=== PATIENT | female | born 1935 | race Caucasian/White ===

== ENCOUNTER → 2017-01-31 | Outpatient (CLI) | payer MEDICARE ==
[~2017-01-31] MED LIST: ASPIRIN81 M1 PO; ATOXIMETIN-B1 CAP PO; CARDIZEM CD180 MG PO; CARDIZEM CD240 MG PO; CIPRO250 MG PO; COLACE100 MG PO; COUMADIN10 M1; COUMADIN5 M2 PO; COUMADIN7.5 M1; DYAZIDE 25 MG-31 CAP PO; FERROUS SULFATE1 GRA; KLOR-CON20 MEQ PO; LANOXIN0.125 MG PO; LASIX40 MG PO; LIPITOR20 MG PO; LOMOTIL 0.025 M1 TA1 PO; Lopressor25 MG; MACROBID100 M1 PO; MASON NATURAL1000 M1 PO; NITROSTAT0.4 MG SL; PYRIDIUM200 MG PO; RYTHMOL SR325 MG PO; TOPROL XL100 MG PO; XANAX0.25 MG PO; ZOFRAN ODT4 MG SL; ZOLOFT100 MG PO
[2017-01-31 15:52] LABS: BASO % 0.5 % (0.0-1.0); EOS # 0.2 10*3/uL (0.0-0.4); EOS % 2.9 % (1.0-4.0); HEMOGLOBIN 12.6 g/dl (12.0-16.0); LYMPH # 1.6 10*3/uL (1.3-4.4); LYMPH % 19.8 % (27.0-41.0); MEAN CELL VOLUME 90.3 fl (81.0-99.0); MEAN CORPUSCULAR HGB 29.9 pg (27.0-31.0); MEAN CORPUSCULAR HGB CONC 33.2 g/dl (33.0-37.0); MEAN PLATELET VOLUME 9.7 fl (9.6-12.3); MONO # 0.7 10*3/uL (0.1-1.0); MONO % 9.5 % (3.0-9.0); NEUT # 5.2 10*3/uL (2.3-7.9); NEUT % 66.9 % (47.0-73.0); PLATELET COUNT AUTOMATED 245 10*3/uL (130-400); RED BLOOD COUNT 4.21 10*6/uL (4.10-5.10); RED CELL DISTRI WIDTH 13.7 % (0-14.5); WHITE BLOOD COUNT 7.8 10*3/uL (4.8-10.8)
[2017-01-31 16:19] LABS: ALBUMIN 3.8 gm/dl (3.1-4.5); BUN 17 mg/dl (7-24); CHLORIDE 105 mmol/L (98-107); CHOLESTEROL 123 mg/dL (<200); CREATININE 0.81 mg/dL (0.55-1.02); POTASSIUM 3.6 mmol/L (3.5-5.1); SGOT/AST 26 IU/L (3-35); SGPT/ALT 33 U/L (12-78); SODIUM 139 mmol/L (136-145); TOTAL PROTEIN 8.4 gm/dL (6.4-8.2); TRIGLYCERIDES 114 mg/dl (<150); VLDL CHOLESTEROL 23 mg/dL (6-40)
[2017-01-31 16:28] LABS: ALKALINE PHOSPHATASE 107 U/L (45-117); HDL CHOLESTEROL 49 mg/dl (40-60); LDL CHOLESTEROL 51 mg/dL (9-159)
== END | disposition home or self-care (01) ==
LOC: LAB 15:28
PROVIDERS: Internal Medicine
DX: I25.810 Atherosclerosis of coronary artery bypass graft(s) without angina pectoris (principal); E78.00 Pure hypercholesterolemia, unspecified; I10 Essential (primary) hypertension; G25.2 Other specified forms of tremor

== ENCOUNTER → 2017-09-15 | Outpatient (CLI) | payer MEDICARE ==
[2017-09-15 16:05] LABS: ALBUMIN 3.8 gm/dl (3.1-4.5); ALKALINE PHOSPHATASE 98 U/L (45-117); BUN 27 mg/dl (7-24); CHLORIDE 108 mmol/L (98-107); CHOLESTEROL 102 mg/dL (<200); HDL CHOLESTEROL 45 mg/dl (40-60); LDL CHOLESTEROL 42 mg/dL (9-159); POTASSIUM 3.8 mmol/L (3.5-5.1); SGOT/AST 18 IU/L (3-35); SGPT/ALT 21 U/L (12-78); SODIUM 139 mmol/L (136-145); TRIGLYCERIDES 77 mg/dl (<150); VLDL CHOLESTEROL 15 mg/dL (6-40)
== END | disposition home or self-care (01) ==
LOC: LAB 14:56
DX: I10 Essential (primary) hypertension (principal); E78.5 Hyperlipidemia, unspecified

== ENCOUNTER → 2018-07-08 | Outpatient (CLI) | payer MEDICARE ==
[~2018-07-08] MED LIST changes: +CARDURA2 M1 PO; +COZAAR50 M1 PO; +Coumadin7.5 MG PO; +DIGITEK125 MCG PO; +NEURONTIN100 MG PO
[2018-07-08 16:26] LABS: BASO % 0.5 % (0.0-1.0); EOS # 0.4 10*3/uL (0.0-0.4); EOS % 4.3 % (1.0-4.0); HEMATOCRIT 35.2 % (37.0-47.0); HEMOGLOBIN 11.3 g/dl (12.0-16.0); LYMPH # 1.5 10*3/uL (1.3-4.4); LYMPH % 17.2 % (27.0-41.0); MEAN CELL VOLUME 93.6 fl (81.0-99.0); MEAN CORPUSCULAR HGB 30.1 pg (27.0-31.0); MEAN CORPUSCULAR HGB CONC 32.1 g/dl (33.0-37.0); MEAN PLATELET VOLUME 10.4 fl (9.6-12.3); MONO # 0.7 10*3/uL (0.1-1.0); MONO % 8.4 % (3.0-9.0); NEUT % 69.4 % (47.0-73.0); PLATELET COUNT AUTOMATED 214 10*3/uL (130-400); RED BLOOD COUNT 3.76 10*6/uL (4.10-5.10); RED CELL DISTRI WIDTH 14.3 % (0-14.5); WHITE BLOOD COUNT 8.6 10*3/uL (4.8-10.8)
[2018-07-08 16:57] LABS: ALBUMIN 3.7 gm/dl (3.1-4.5); ALKALINE PHOSPHATASE 137 U/L (45-117); BUN 20 mg/dl (7-24); CHLORIDE 103 mmol/L (98-107); CHOLESTEROL 102 mg/dL (<200); CREATININE 1.02 mg/dL (0.55-1.02); HDL CHOLESTEROL 47 mg/dl (40-60); LDL CHOLESTEROL 39 mg/dL (9-159); POTASSIUM 4.4 mmol/L (3.5-5.1); SGOT/AST 28 IU/L (3-35); SGPT/ALT 34 U/L (12-78); SODIUM 139 mmol/L (136-145); THYROXINE (T4) TOTAL 5.1 ug/dl (4.8-13.9); TOTAL PROTEIN 8.7 gm/dL (6.4-8.2); TRIGLYCERIDES 80 mg/dl (<150); VLDL CHOLESTEROL 16 mg/dL (6-40)
[2018-07-09 06:57] LABS: FREE T4 0.96 ng/dl (0.76-1.46)
== END | disposition home or self-care (01) ==
LOC: LAB 15:56
PROVIDERS: Internal Medicine
DX: N39.0 Urinary tract infection, site not specified (principal); E78.5 Hyperlipidemia, unspecified; R73.01 Impaired fasting glucose; I10 Essential (primary) hypertension; E03.9 Hypothyroidism, unspecified; Z79.899 Other long term (current) drug therapy

== ENCOUNTER → 2018-11-22 | Outpatient (CLI) | payer MEDICARE | END | disposition home or self-care (01) | LOC: US 11-03 13:30 | DX: I65.23 Occlusion and stenosis of bilateral carotid arteries (principal) ==

== ENCOUNTER → 2019-05-28 | Outpatient (CLI) | payer MEDICARE ==
[2019-05-28 12:12] LABS: ALBUMIN 4.1 gm/dl (3.1-4.5); CREATININE 1.23 mg/dL (0.55-1.02); POTASSIUM 3.2 mmol/L (3.5-5.1); TOTAL PROTEIN 8.8 gm/dL (6.4-8.2)
== END | disposition home or self-care (01) ==
LOC: LAB 11:06
PROVIDERS: Nurse Practitioner Family
DX: E78.5 Hyperlipidemia, unspecified (principal); Z95.2 Presence of prosthetic heart valve

== ENCOUNTER 2021-12-16 10:27 | Inpatient (IN) | payer MEDICARE ==
[~2021-12-16] VITALS: Ht 165.1 cm; Wt 50.5 kg
[2021-12-16 10:28] VITALS: BP 138/84
[2021-12-16 11:51] LABS: BILIRUBIN Negative (Negative); BLOOD Negative (Negative); CLARITY Cloudy (Clear); COLOR Yellow (Yellow); GLUCOSE Negative (Negative); KETONE Negative (Negative); LEUKO ESTERASE 3+ (Negative); NITRITE Positive (Negative)
[2021-12-16 11:52] LABS: BASO % 0.4 % (0.0-1.0); EOS # 0.2 10*3/uL (0.0-0.4); EOS % 2.6 % (1.0-4.0); LYMPH # 0.9 10*3/uL (1.3-4.4); LYMPH % 10.8 % (27.0-41.0); MEAN CELL VOLUME 90.9 fl (81.0-99.0); MEAN CORPUSCULAR HGB 30.6 pg (27.0-31.0); MEAN CORPUSCULAR HGB CONC 33.7 g/dl (33.0-37.0); MEAN PLATELET VOLUME 10.1 fl (9.6-12.3); MONO # 0.6 10*3/uL (0.1-1.0); NEUT # 6.4 10*3/uL (2.3-7.9); NEUT % 78.8 % (47.0-73.0); PLATELET COUNT AUTOMATED 239 10*3/uL (130-400); RED CELL DISTRI WIDTH 13.9 % (0-14.5); WHITE BLOOD COUNT 8.1 10*3/uL (4.8-10.8)
[2021-12-16 12:12] LABS: INTERNATIONAL NORM RATIO 8.8 (2.0-3.5)
[2021-12-16 12:14] LABS: BACTERIA 4+; WBC TNTC wbc/hpf (0-5)
[2021-12-16 12:16] LABS: ALKALINE PHOSPHATASE 101 U/L (45-117); BUN 17 mg/dl (7-24); CHLORIDE 109 mmol/L (98-107); CREATININE 0.82 mg/dL (0.55-1.02); POTASSIUM 3.5 mmol/L (3.5-5.1); SGOT/AST 18 IU/L (3-35); SGPT/ALT 7 U/L (12-78); SODIUM 140 mmol/L (136-145); TOTAL PROTEIN 7.9 gm/dL (6.4-8.2)
[2021-12-16 14:43] VITALS: BP 130/80
[2021-12-16 17:15] VITALS: BP 162/68
[2021-12-16] MEDS ORDERED: FERRETTS325 M1 PO (17:48)
[2021-12-16] MEDS ORDERED: FUROSEMIDE20 M1 PO (17:49)
[2021-12-16] MEDS ORDERED: CARVEDILOL3.125 MG PO (17:54)
[2021-12-16] MEDS ORDERED: CLONIDINE0.3 MG PO (17:59)
[2021-12-16] MEDS ORDERED: DHIVY 25-100 M1 EACH PO (18:00)
[2021-12-16] MEDS ORDERED: MECLIZINE HCL25 M2 PO (18:01)
[2021-12-16] MEDS ORDERED: TYLENOL325 M1 PO (18:03)
[2021-12-16 20:00] VITALS: BP 150/60; BP 158/39
[2021-12-17] VITALS: BP 148/59
[2021-12-17] MEDS ORDERED: BIOTIN2500 MCG PO (00:06)
[2021-12-17] MEDS ORDERED: FEOSOL45 M1 PO (00:07)
[2021-12-17] MEDS ORDERED: FEOSOL325 MG PO (00:07)
[2021-12-17] MEDS ORDERED: DIGOXIN125 MCG PO (00:10)
[2021-12-17] MEDS ORDERED: DILTIAZEM 24HR300 MG PO (00:11)
[2021-12-17] MEDS ORDERED: VITAMIN B122500 MC1 PO (00:14)
[2021-12-17] MEDS ORDERED: PROPAFENONE HC150 MG PO (00:15)
[2021-12-17] MEDS ORDERED: MIRALAX17 GM PO (00:16)
[2021-12-17] MEDS ORDERED: DULCOLAX STOOL100 M1 PO (00:19)
[2021-12-17 06:06] LABS: BUN 13 mg/dl (7-24); CHLORIDE 111 mmol/L (98-107); POTASSIUM 3.5 mmol/L (3.5-5.1); SODIUM 143 mmol/L (136-145)
[2021-12-17 06:09] LABS: BASO % 0.4 % (0.0-1.0); EOS # 0.2 10*3/uL (0.0-0.4); EOS % 2.5 % (1.0-4.0); HEMATOCRIT 29.4 % (37.0-47.0); LYMPH # 1.2 10*3/uL (1.3-4.4); LYMPH % 13.3 % (27.0-41.0); MEAN CELL VOLUME 90.7 fl (81.0-99.0); MEAN CORPUSCULAR HGB 30.6 pg (27.0-31.0); MEAN CORPUSCULAR HGB CONC 33.7 g/dl (33.0-37.0); MEAN PLATELET VOLUME 10.4 fl (9.6-12.3); MONO # 0.8 10*3/uL (0.1-1.0); MONO % 9.1 % (3.0-9.0); NEUT # 6.7 10*3/uL (2.3-7.9); NEUT % 74.4 % (47.0-73.0); PLATELET COUNT AUTOMATED 246 10*3/uL (130-400); RED BLOOD COUNT 3.24 10*6/uL (4.10-5.10); RED CELL DISTRI WIDTH 13.7 % (0-14.5)
[2021-12-17 06:17] LABS: ALKALINE PHOSPHATASE 87 U/L (45-117); CHOLESTEROL 89 mg/dL (<200); CREATININE 0.82 mg/dL (0.55-1.02); FREE T4 1.15 ng/dl (0.76-1.46); LDL CHOLESTEROL 31 mg/dL (9-159); SGOT/AST 19 IU/L (3-35); SGPT/ALT 18 U/L (12-78); TOTAL PROTEIN 7.4 gm/dL (6.4-8.2); TRIGLYCERIDES 89 mg/dl (<150)
[2021-12-17 06:33] LABS: ACT PARTIAL THROMBO TIME 63.7 SECONDS (20.0-32.1)
[2021-12-17 06:41] LABS: INTERNATIONAL NORM RATIO 7.6 (2.0-3.5)
[2021-12-17 08:00] VITALS: BP 171/69
[2021-12-17 12:00] VITALS: BP 138/62
[2021-12-17 16:00] VITALS: BP 177/78
[2021-12-17 20:00] VITALS: BP 162/70
[2021-12-18] VITALS: BP 166/63
[2021-12-18 06:23] LABS: BUN 13 mg/dl (7-24); CHLORIDE 110 mmol/L (98-107); CREATININE 0.83 mg/dL (0.55-1.02); POTASSIUM 3.2 mmol/L (3.5-5.1); SODIUM 140 mmol/L (136-145)
[2021-12-18 06:24] LABS: BASO % 0.3 % (0.0-1.0); EOS # 0.2 10*3/uL (0.0-0.4); EOS % 2.5 % (1.0-4.0); HEMATOCRIT 29.5 % (37.0-47.0); LYMPH # 1.4 10*3/uL (1.3-4.4); LYMPH % 15.6 % (27.0-41.0); MEAN CELL VOLUME 90.8 fl (81.0-99.0); MEAN CORPUSCULAR HGB 30.5 pg (27.0-31.0); MEAN CORPUSCULAR HGB CONC 33.6 g/dl (33.0-37.0); MEAN PLATELET VOLUME 10.3 fl (9.6-12.3); MONO % 10.8 % (3.0-9.0); NEUT # 6.3 10*3/uL (2.3-7.9); NEUT % 70.5 % (47.0-73.0); PLATELET COUNT AUTOMATED 253 10*3/uL (130-400); RED BLOOD COUNT 3.25 10*6/uL (4.10-5.10); RED CELL DISTRI WIDTH 13.7 % (0-14.5)
[2021-12-18 06:45] LABS: INTERNATIONAL NORM RATIO 5.3 (2.0-3.5)
[2021-12-18 08:00] VITALS: BP 152/100
[2021-12-18 12:00] VITALS: BP 146/50
[2021-12-18 16:00] VITALS: BP 172/102
[2021-12-18 20:00] VITALS: BP 179/79
[2021-12-19] VITALS: BP 136/70
[2021-12-19 08:00] VITALS: BP 173/90
[2021-12-19 12:00] VITALS: BP 134/48
[2021-12-19 16:00] VITALS: BP 160/74
[2021-12-19 20:00] VITALS: BP 119/48
[2021-12-20] VITALS: BP 158/72
[2021-12-20 07:04] LABS: INTERNATIONAL NORM RATIO 2.7 (2.0-3.5)
[2021-12-20 08:00] VITALS: BP 170/55
[2021-12-20 12:00] VITALS: BP 166/63
[2021-12-20 16:00] VITALS: BP 143/64
[2021-12-20 20:00] VITALS: BP 196/92
[2021-12-21] VITALS (8 sets, daily range): BP systolic 132–220; BP diastolic 63–108
[2021-12-21 06:20] LABS: BASO % 0.2 % (0.0-1.0); EOS # 0.3 10*3/uL (0.0-0.4); EOS % 3.4 % (1.0-4.0); HEMATOCRIT 27.3 % (37.0-47.0); LYMPH # 1.2 10*3/uL (1.3-4.4); LYMPH % 14.9 % (27.0-41.0); MEAN CELL VOLUME 91.9 fl (81.0-99.0); MEAN CORPUSCULAR HGB CONC 33.7 g/dl (33.0-37.0); MEAN PLATELET VOLUME 10.2 fl (9.6-12.3); MONO # 0.7 10*3/uL (0.1-1.0); NEUT # 5.8 10*3/uL (2.3-7.9); PLATELET COUNT AUTOMATED 229 10*3/uL (130-400); RED BLOOD COUNT 2.97 10*6/uL (4.10-5.10); RED CELL DISTRI WIDTH 13.7 % (0-14.5); WHITE BLOOD COUNT 8.1 10*3/uL (4.8-10.8)
[2021-12-21 06:24] LABS: INTERNATIONAL NORM RATIO 3.7 (2.0-3.5)
[2021-12-21 06:29] LABS: CHLORIDE 108 mmol/L (98-107); POTASSIUM 3.6 mmol/L (3.5-5.1); SODIUM 140 mmol/L (136-145)
[2021-12-21 06:36] LABS: BUN 12 mg/dl (7-24); CREATININE 0.73 mg/dL (0.55-1.02)
[2021-12-21 15:52] LABS: DIGOXIN 0.66 ng/ml (0.8-2.0)
[2021-12-22] VITALS: BP 180/78
[2021-12-22 06:10] LABS: BASO % 0.3 % (0.0-1.0); EOS # 0.3 10*3/uL (0.0-0.4); EOS % 3.2 % (1.0-4.0); HEMATOCRIT 27.3 % (37.0-47.0); LYMPH # 1.3 10*3/uL (1.3-4.4); MEAN CELL VOLUME 91.3 fl (81.0-99.0); MEAN CORPUSCULAR HGB 30.1 pg (27.0-31.0); MEAN PLATELET VOLUME 10.2 fl (9.6-12.3); MONO # 0.7 10*3/uL (0.1-1.0); MONO % 8.6 % (3.0-9.0); NEUT # 5.6 10*3/uL (2.3-7.9); NEUT % 71.6 % (47.0-73.0); PLATELET COUNT AUTOMATED 247 10*3/uL (130-400); RED BLOOD COUNT 2.99 10*6/uL (4.10-5.10); RED CELL DISTRI WIDTH 13.6 % (0-14.5); WHITE BLOOD COUNT 7.8 10*3/uL (4.8-10.8)
[2021-12-22 06:14] LABS: INTERNATIONAL NORM RATIO 2.8 (2.0-3.5)
[2021-12-22 06:30] LABS: BUN 15 mg/dl (7-24); CHLORIDE 108 mmol/L (98-107); CREATININE 0.71 mg/dL (0.55-1.02); POTASSIUM 3.8 mmol/L (3.5-5.1); SODIUM 139 mmol/L (136-145)
[2021-12-22 08:00] VITALS: BP 178/62
[2021-12-22 12:00] VITALS: BP 104/42
[2021-12-22] MEDS ORDERED: XANAX0.25 MG PO (14:23)
[2021-12-22] MEDS ORDERED: CARDIZEM CD180 MG PO (14:23)
[2021-12-22] MEDS ORDERED: LISINOPRIL5 MG PO (14:23)
[2021-12-22] MEDS ORDERED: CEFUROXIME AXE500 MG PO ×2 (14:23→14:24)
[2021-12-22 16:00] VITALS: BP 138/48
== END 2021-12-22 18:40 | disposition home health service (06) | DRG 689 ==
LOC: ED 10:27 → 5E 14:31 → EDHOLD 14:31 → 5E 16:19
PROVIDERS: Internal Medicine; Physician Assistant; Student in an Organized Health Care Education/Training Program; ADMIT Internal Medicine; ATTEND Internal Medicine
DX: N30.00 Acute cystitis without hematuria (principal); G93.41 Metabolic encephalopathy; I16.1 Hypertensive emergency; G45.9 Transient cerebral ischemic attack, unspecified; D64.9 Anemia, unspecified; Z20.822 Contact with and (suspected) exposure to COVID-19; I48.91 Unspecified atrial fibrillation; Z66 Do not resuscitate; R73.9 Hyperglycemia, unspecified; I10 Essential (primary) hypertension; E78.5 Hyperlipidemia, unspecified; G20 Parkinson's disease; E87.8 Other disorders of electrolyte and fluid balance, not elsewhere classified; E88.09 Other disorders of plasma-protein metabolism, not elsewhere classified; E59 Dietary selenium deficiency; Z82.5 Family history of asthma and other chronic lower respiratory diseases; Z83.3 Family history of diabetes mellitus; Z95.2 Presence of prosthetic heart valve; Z90.49 Acquired absence of other specified parts of digestive tract

== ENCOUNTER 2022-02-14 02:28 | Emergency (ER) | payer MEDICARE ==
[~2022-02-14 02:28] MED LIST changes: +BIOTIN2500 MCG PO; +CARVEDILOL3.125 MG PO; +CEFUROXIME AXE500 MG PO; +CLONIDINE0.3 MG PO; +DHIVY 25-100 M1 EACH PO; +DIGOXIN125 MCG PO; +DILTIAZEM 24HR300 MG PO; +DULCOLAX STOOL100 M1 PO; +FEOSOL325 MG PO; +FEOSOL45 M1 PO; +FERRETTS325 M1 PO; +FUROSEMIDE20 M1 PO; +LISINOPRIL5 MG PO; +MECLIZINE HCL25 M2 PO; +MIRALAX17 GM PO; +PROPAFENONE HC150 MG PO; +TYLENOL325 M1 PO; +VITAMIN B122500 MC1 PO
[2022-02-14 03:02] LABS: BASO % 0.3 % (0.0-1.0); EOS # 0.3 10*3/uL (0.0-0.4); EOS % 2.6 % (1.0-4.0); HEMATOCRIT 34.2 % (37.0-47.0); LYMPH # 1.9 10*3/uL (1.3-4.4); LYMPH % 18.5 % (27.0-41.0); MEAN CELL VOLUME 94.7 fl (81.0-99.0); MEAN CORPUSCULAR HGB 30.5 pg (27.0-31.0); MEAN CORPUSCULAR HGB CONC 32.2 g/dl (33.0-37.0); MEAN PLATELET VOLUME 10.2 fl (9.6-12.3); MONO % 9.9 % (3.0-9.0); NEUT # 6.8 10*3/uL (2.3-7.9); NEUT % 68.2 % (47.0-73.0); PLATELET COUNT AUTOMATED 226 10*3/uL (130-400); RED BLOOD COUNT 3.61 10*6/uL (4.10-5.10); RED CELL DISTRI WIDTH 13.3 % (0-14.5)
[2022-02-14 03:13] LABS: ACT PARTIAL THROMBO TIME 31.2 SECONDS (20.0-32.1); INTERNATIONAL NORM RATIO 1.1 (2.0-3.5)
[2022-02-14 03:19] LABS: ALKALINE PHOSPHATASE 118 U/L (45-117); BUN 22 mg/dl (7-24); CHLORIDE 109 mmol/L (98-107); CREATININE 0.87 mg/dL (0.55-1.02); LIPASE 102 U/L (73-393); POTASSIUM 4.1 mmol/L (3.5-5.1); SGOT/AST 14 IU/L (3-35); SGPT/ALT 13 U/L (12-78); SODIUM 138 mmol/L (136-145); TOTAL PROTEIN 7.8 gm/dL (6.4-8.2)
[2022-02-14 06:46] LABS: BILIRUBIN Negative (Negative); BLOOD Negative (Negative); CLARITY Clear (Clear); COLOR Yellow (Yellow); GLUCOSE Negative (Negative); KETONE Negative (Negative); LEUKO ESTERASE 2+ (Negative); NITRITE Negative (Negative); PH 6.5 (4.5-8.0); SPECIFIC GRAVITY 1.015 (1.001-1.030); UROBILINOGEN 0.2 E.U./dl (0.0-1.0)
[2022-02-14 07:00] VITALS: BP 202/100
[2022-02-14 07:27] LABS: BACTERIA 2+; WBC 31-40 wbc/hpf (0-5)
[2022-02-14] MEDS ORDERED: MIRALAX POWDER17 G1 PO ×2 (09:52→09:56)
== END 2022-02-14 10:30 ==
LOC: ED 02:28
PROVIDERS: Family Medicine
DX: R10.31 Right lower quadrant pain (principal); Z20.822 Contact with and (suspected) exposure to COVID-19; Z88.8 Allergy status to other drugs, medicaments and biological substances; Z79.899 Other long term (current) drug therapy; Z90.49 Acquired absence of other specified parts of digestive tract; Z98.890 Other specified postprocedural states

== ENCOUNTER 2022-03-28 02:16 | Emergency (ER) | payer MEDICARE ==
[~2022-03-28] VITALS: Ht 162.5 cm; Wt 54.4 kg
[~2022-03-28 02:16] MED LIST changes: +MIRALAX POWDER17 G1 PO
[2022-03-28] MEDS ORDERED: LIPITOR20 MG PO (02:32)
[2022-03-28] MEDS ORDERED: CLONIDINE HCL0.1 MG PO (02:33)
[2022-03-28] MEDS ORDERED: CEFUROXIME AXE500 MG PO (02:33)
[2022-03-28] MEDS ORDERED: WARFARIN SOD5 MG PO (02:35)
[2022-03-28] MEDS ORDERED: DIGITEK125 MCG PO (02:36)
[2022-03-28] MEDS ORDERED: DILTIAZEM 24HR180 MG PO (02:36)
[2022-03-28] MEDS ORDERED: LASIX20 MG PO (02:37)
[2022-03-28] MEDS ORDERED: LISINOPRIL20 MG PO (02:37)
[2022-03-28] MEDS ORDERED: MIRTAZAPINE15 M1 PO (02:38)
[2022-03-28] MEDS ORDERED: PROPAFENONE HC150 MG PO (02:40)
[2022-03-28] MEDS ORDERED: MEDI-MECLIZINE25 MG PO (02:41)
[2022-03-28 03:24] LABS: BASO % 0.5 % (0.0-1.0); EOS # 0.1 10*3/uL (0.0-0.4); EOS % 0.7 % (1.0-4.0); HEMATOCRIT 33.4 % (37.0-47.0); LYMPH % 11.3 % (27.0-41.0); MEAN CELL VOLUME 93.3 fl (81.0-99.0); MEAN CORPUSCULAR HGB CONC 33.2 g/dl (33.0-37.0); MONO # 0.9 10*3/uL (0.1-1.0); MONO % 10.4 % (3.0-9.0); NEUT # 6.7 10*3/uL (2.3-7.9); NEUT % 76.8 % (47.0-73.0); PLATELET COUNT AUTOMATED 199 10*3/uL (130-400); RED BLOOD COUNT 3.58 10*6/uL (4.10-5.10); RED CELL DISTRI WIDTH 14.5 % (0-14.5); WHITE BLOOD COUNT 8.7 10*3/uL (4.8-10.8)
[2022-03-28 03:52] LABS: BUN 16 mg/dl (7-24); CREATININE 1.05 mg/dL (0.55-1.02)
[2022-03-28 03:56] LABS: CHLORIDE 104 mmol/L (98-107); POTASSIUM 4.3 mmol/L (3.5-5.1); SODIUM 137 mmol/L (136-145)
[2022-03-28 04:58] VITALS: BP 158/75
[2022-03-28] MEDS ORDERED: B12 ACTIVE1000 MCG PO (15:39)
[2022-03-28] MEDS ORDERED: FEOSOL325 MG PO (15:41)
[2022-03-28] MEDS ORDERED: DOCUSATE SOD100 MG PO (15:42)
[2022-03-31] MEDS ORDERED: CEFUROXIME AXE500 MG PO (11:06)
[2022-03-31] MEDS ORDERED: GABAPENTIN100 M2 PO (11:20)
== END 2022-03-28 05:34 | disposition home or self-care (01) ==
LOC: ED 02:16
PROVIDERS: Internal Medicine
DX: U07.1 COVID-19 (principal); I16.0 Hypertensive urgency; I12.9 Hypertensive chronic kidney disease with stage 1 through stage 4 chronic kidney disease, or unspecified chronic kidney disease; N18.4 Chronic kidney disease, stage 4 (severe); I48.91 Unspecified atrial fibrillation; M19.90 Unspecified osteoarthritis, unspecified site; E78.5 Hyperlipidemia, unspecified; Z88.8 Allergy status to other drugs, medicaments and biological substances; Z79.899 Other long term (current) drug therapy; Z90.49 Acquired absence of other specified parts of digestive tract

== ENCOUNTER 2022-04-16 13:04 | Emergency (ER) | payer MEDICARE ==
[~2022-04-16] VITALS: Wt 56.7 kg
[~2022-04-16 13:04] MED LIST changes: +B12 ACTIVE1000 MCG PO; +CLONIDINE HCL0.1 MG PO; +DILTIAZEM 24HR180 MG PO; +DOCUSATE SOD100 MG PO; +GABAPENTIN100 M2 PO; +LASIX20 MG PO; +LISINOPRIL20 MG PO; +MEDI-MECLIZINE25 MG PO; +MIRTAZAPINE15 M1 PO; +WARFARIN SOD5 MG PO
[2022-04-16 14:21] LABS: BASO % 0.8 % (0.0-1.0); EOS # 0.1 10*3/uL (0.0-0.4); EOS % 2.7 % (1.0-4.0); HEMATOCRIT 29.2 % (37.0-47.0); LYMPH # 1.3 10*3/uL (1.3-4.4); LYMPH % 25.5 % (27.0-41.0); MEAN CORPUSCULAR HGB 30.5 pg (27.0-31.0); MEAN CORPUSCULAR HGB CONC 30.8 g/dl (33.0-37.0); MEAN PLATELET VOLUME 10.2 fl (9.6-12.3); MONO # 0.5 10*3/uL (0.1-1.0); MONO % 9.5 % (3.0-9.0); NEUT # 3.2 10*3/uL (2.3-7.9); NEUT % 61.3 % (47.0-73.0); PLATELET COUNT AUTOMATED 197 10*3/uL (130-400); RED BLOOD COUNT 2.95 10*6/uL (4.10-5.10); RED CELL DISTRI WIDTH 15.2 % (0-14.5); WHITE BLOOD COUNT 5.2 10*3/uL (4.8-10.8)
[2022-04-16 14:34] LABS: ACT PARTIAL THROMBO TIME 34.9 SECONDS (20.0-32.1); INTERNATIONAL NORM RATIO 2.1 (2.0-3.5)
[2022-04-16 15:00] VITALS: BP 162/61
[2022-04-16 15:06] LABS: ALKALINE PHOSPHATASE 86 U/L (46-116); BUN 12 mg/dl (9-23); CHLORIDE 111 mmol/L (98-107); CREATININE 0.73 mg/dL (0.55-1.02); LIPASE 23 U/L (12-53); POTASSIUM 4.4 mmol/L (3.4-5.1); SODIUM 140 mmol/L (136-145); TOTAL PROTEIN 6.3 gm/dL (6.0-8.0)
[2022-04-16 15:17] LABS: BILIRUBIN Negative (Negative); BLOOD Negative (Negative); CLARITY Clear (Clear); COLOR Yellow (Yellow); GLUCOSE Negative (Negative); KETONE Trace (Negative); LEUKO ESTERASE 2+ (Negative); NITRITE Negative (Negative); SPECIFIC GRAVITY 1.025 (1.001-1.030); UROBILINOGEN 0.2 E.U./dl (0.0-1.0)
[2022-04-16 15:32] LABS: SGPT/ALT 9 U/L (10-49)
[2022-04-16 16:24] LABS: WBC 21-30 wbc/hpf (0-5)
== END 2022-04-16 16:31 | disposition home or self-care (01) ==
LOC: ED 13:04
PROVIDERS: Family Medicine
DX: F91.9 Conduct disorder, unspecified (principal); Z90.49 Acquired absence of other specified parts of digestive tract; Z79.899 Other long term (current) drug therapy; Z88.8 Allergy status to other drugs, medicaments and biological substances

== ENCOUNTER 2022-05-09 11:59 | Emergency (ER) | payer MEDICARE ==
[~2022-05-09] VITALS: Ht 165.1 cm; Wt 73.9 kg
[~2022-05-09 11:59] MED LIST changes: +ACETAMINOPHEN325 M2 PO; +ANTIVERT25 M2 PO; +BIOTIN PLUS 5,1 EACH PO; +OMNICEF300 MG PO; +ZINC-22050 MG PO
[2022-05-09 12:53] LABS: BASO % 0.5 % (0.0-1.0); EOS # 0.2 10*3/uL (0.0-0.4); EOS % 2.5 % (1.0-4.0); HEMATOCRIT 31.3 % (37.0-47.0); LYMPH % 14.1 % (27.0-41.0); MEAN CORPUSCULAR HGB 31.3 pg (27.0-31.0); MEAN PLATELET VOLUME 9.8 fl (9.6-12.3); MONO # 0.6 10*3/uL (0.1-1.0); MONO % 8.5 % (3.0-9.0); NEUT # 5.4 10*3/uL (2.3-7.9); NEUT % 74.3 % (47.0-73.0); PLATELET COUNT AUTOMATED 227 10*3/uL (130-400); RED CELL DISTRI WIDTH 16.4 % (0-14.5); WHITE BLOOD COUNT 7.3 10*3/uL (4.8-10.8)
[2022-05-09 13:13] LABS: ALKALINE PHOSPHATASE 151 U/L (46-116); BUN 20 mg/dl (9-23); CHLORIDE 111 mmol/L (98-107); LIPASE 22 U/L (12-53); POTASSIUM 4.4 mmol/L (3.4-5.1); TOTAL PROTEIN 6.9 gm/dL (6.0-8.0)
[2022-05-09 13:15] LABS: ACT PARTIAL THROMBO TIME 29.9 SECONDS (20.0-32.1); INTERNATIONAL NORM RATIO 1.5 (2.0-3.5)
[2022-05-09 13:17] LABS: SGPT/ALT < 7 U/L (10-49)
[2022-05-09] MEDS ORDERED: XANAX0.25 MG PO (13:30)
[2022-05-09 14:18] VITALS: BP 130/70
[2022-05-09] MEDS ORDERED: DULCOLAX STOOL100 M1 PO (14:39)
[2022-05-09] MEDS ORDERED: MAGNESIUM OXID400 MG PO (14:41)
[2022-05-09] MEDS ORDERED: TRAMADOL HCL50 MG PO (14:44)
== END 2022-05-09 15:32 | disposition home or self-care (01) ==
LOC: ED 11:59
PROVIDERS: Emergency Medicine
DX: F41.9 Anxiety disorder, unspecified (principal); Z88.8 Allergy status to other drugs, medicaments and biological substances; Z79.899 Other long term (current) drug therapy; Z90.49 Acquired absence of other specified parts of digestive tract

== ENCOUNTER 2022-06-01 18:30 | Emergency (ER) | payer MEDICARE ==
[~2022-06-01] VITALS: Wt 56.4 kg
[~2022-06-01 18:30] MED LIST changes: +BUSPIRONE HCL10 MG PO; +MAGNESIUM OXID400 MG PO; +MILK OF MA400 MG/51 PO; +MIRALAX119 GM PO; +STIMULANT LAXA1 EACH PO; +TRAMADOL HCL50 MG PO; +VITAMIN B-12250 MCG PO; +VITAMIN C250 M2 PO; +VITAMIN D325 MCG PO
[2022-06-01 19:05] LABS: BASO % 0.3 % (0.0-1.0); EOS # 0.2 10*3/uL (0.0-0.4); EOS % 3.5 % (1.0-4.0); HEMATOCRIT 34.6 % (37.0-47.0); LYMPH # 1.2 10*3/uL (1.3-4.4); LYMPH % 18.8 % (27.0-41.0); MEAN CELL VOLUME 99.1 fl (81.0-99.0); MEAN CORPUSCULAR HGB 31.5 pg (27.0-31.0); MEAN CORPUSCULAR HGB CONC 31.8 g/dl (33.0-37.0); MEAN PLATELET VOLUME 9.8 fl (9.6-12.3); MONO # 0.5 10*3/uL (0.1-1.0); NEUT # 4.6 10*3/uL (2.3-7.9); NEUT % 70.1 % (47.0-73.0); PLATELET COUNT AUTOMATED 167 10*3/uL (130-400); RED BLOOD COUNT 3.49 10*6/uL (4.10-5.10); RED CELL DISTRI WIDTH 14.4 % (0-14.5); WHITE BLOOD COUNT 6.6 10*3/uL (4.8-10.8)
[2022-06-01 19:18] LABS: ACT PARTIAL THROMBO TIME 33.1 SECONDS (20.0-32.1); INTERNATIONAL NORM RATIO 1.9 (2.0-3.5)
[2022-06-01 19:22] LABS: ALKALINE PHOSPHATASE 173 U/L (46-116); BUN 20 mg/dl (9-23); CHLORIDE 105 mmol/L (98-107); LIPASE 25 U/L (12-53); POTASSIUM 4.1 mmol/L (3.4-5.1); TOTAL PROTEIN 7.5 gm/dL (6.0-8.0)
[2022-06-01 19:24] LABS: SGPT/ALT < 7 U/L (10-49)
[2022-06-01 21:03] LABS: BILIRUBIN Negative (Negative); BLOOD Negative (Negative); CLARITY Cloudy (Clear); COLOR Yellow (Yellow); GLUCOSE Negative (Negative); KETONE Trace (Negative); LEUKO ESTERASE 3+ (Negative); NITRITE Negative (Negative); PH 5.5 (4.5-8.0)
[2022-06-01 21:19] LABS: BACTERIA 2+; WBC 41-50 wbc/hpf (0-5)
[2022-06-02 06:10] VITALS: BP 168/94
[2022-06-02] MEDS ORDERED: MACRODANTIN100 M1 PO (10:39)
== END 2022-06-02 10:50 ==
LOC: ED 18:30
PROVIDERS: Emergency Medicine
DX: F43.21 Adjustment disorder with depressed mood (principal); N39.0 Urinary tract infection, site not specified; I12.9 Hypertensive chronic kidney disease with stage 1 through stage 4 chronic kidney disease, or unspecified chronic kidney disease; N18.31 Chronic kidney disease, stage 3a; D64.9 Anemia, unspecified; E78.5 Hyperlipidemia, unspecified; M19.90 Unspecified osteoarthritis, unspecified site

== ENCOUNTER 2022-06-02 12:19 | Emergency (ER) | payer MEDICARE ==
[~2022-06-02] VITALS: Wt 56.2 kg
[~2022-06-02 12:19] MED LIST changes: +MACRODANTIN100 M1 PO
[2022-06-02 13:55] VITALS: BP 192/156
== END 2022-06-02 14:42 ==
LOC: ED 12:19
DX: F43.23 Adjustment disorder with mixed anxiety and depressed mood (principal); Z88.8 Allergy status to other drugs, medicaments and biological substances; Z91.041 Radiographic dye allergy status; Z88.5 Allergy status to narcotic agent; Z90.49 Acquired absence of other specified parts of digestive tract; Z98.890 Other specified postprocedural states

== ENCOUNTER 2022-06-15 13:16 | Emergency (ER) | payer MEDICARE ==
[~2022-06-15] VITALS: Wt 54.9 kg
[2022-06-15 14:10] VITALS: BP 172/90
[2022-06-15] MEDS ORDERED: VIBRAMYCIN100 MG PO (14:25)
== END 2022-06-15 14:37 ==
LOC: ED 13:16
DX: R04.0 Epistaxis (principal); Z88.5 Allergy status to narcotic agent; Z91.041 Radiographic dye allergy status; Z88.8 Allergy status to other drugs, medicaments and biological substances; Z90.49 Acquired absence of other specified parts of digestive tract; Z98.890 Other specified postprocedural states